=== PATIENT | male | born 1955 | race Caucasian/White ===

== ENCOUNTER 2022-11-01 07:13 | Day surgery (SDC) | payer BC ==
[~2022-11-01 07:13] MED LIST: Lactated Ringers 1,000 ML IV SCH
[2022-11-01] MEDS ORDERED: Metoclopramide 10 MG/2 ML SDV IVPUSH PRN (07:46)
[2022-11-01] MEDS ORDERED: fentaNYL 50 MCG/ML SDV IVPUSH PRN (07:46)
[2022-11-01] MEDS ORDERED: Morphine 2 MG/ML SYRINGE IVPUSH PRN (07:46)
[2022-11-01] MEDS ORDERED: Ondansetron 4 MG/2 ML SDV IVPUSH PRN (07:46)
[2022-11-01] MEDS ORDERED: HYDROmorphone 1 MG/ML Syringe IVPUSH PRN (07:46)
[2022-11-01] MEDS ORDERED: Albuterol 0.083% 2.5 MG/3 ML Neb Soln NEB PRN (07:46)
[2022-11-01] MEDS ORDERED: droPERidol 5 MG/2 ML SDV IVPUSH PRN (07:46)
[2022-11-01] MEDS ORDERED: Naloxone 0.4 MG/ML SDV IVPUSH PRN (07:46)
[2022-11-01] MEDS ORDERED: Dexmedetomidine 200 MCG/2 ML SDV ONE (07:49)
[2022-11-01] MEDS ORDERED: Water For Injection, Sterile 40 ML ONE (07:49)
[2022-11-01] MEDS ORDERED: Dexamethasone 4 MG/ML 5 ML MDV ONE (07:49)
[2022-11-01] MEDS ORDERED: fentaNYL 100 MCG/2 ML SDV ONE ×2 (07:49→08:51)
[2022-11-01] MEDS ORDERED: Propofol 200 MG/20 ML SDV ONE (07:49)
[2022-11-01] MEDS ORDERED: ceFAZolin 2 GM Vial ONE (07:49)
[2022-11-01] MEDS ORDERED: Lidocaine 2% 5 ML SDV ONE (07:49)
[2022-11-01] MEDS ORDERED: Lidocaine 1% 5 ML VIAL ONE (07:56)
[2022-11-01] MEDS ORDERED: Ropivacaine 0.5% 5 MG/ML 30 ML SDV ONE (07:59)
[2022-11-01] MEDS ORDERED: ceFAZolin 2 GM in Sodium Chloride 0.9% 50 ML IV ONE (08:00)
[2022-11-01] MEDS ORDERED: Bupivacaine 0.25% 30 ML SDV ONE (08:27)
[2022-11-01] MEDS ORDERED: Bupivacaine 25%/EPINEPHrine/PF 30 ML ONE (08:27)
[2022-11-01] MEDS ORDERED: Ketorolac 30 MG/ML SDV ONE (09:26)
== END 2022-11-01 11:17 | disposition home or self-care (01) ==
LOC: MW.SDS 07:13
PROVIDERS: ATTEND Orthopaedic Surgery
DX: M70.41 Prepatellar bursitis, right knee (principal); M51.16 Intervertebral disc disorders with radiculopathy, lumbar region; M48.061 Spinal stenosis, lumbar region without neurogenic claudication
CPT/HCPCS: 27340; 64447; 87070; 87075; 87205; J0690; J1100; J1885; J2704; J2795; J3010; J7120; J3490

== ENCOUNTER 2023-12-08 09:05 | Emergency (ER) | payer BC ==
[2023-12-08] MEDS: diphenhydrAMINE 50 MG/ML SDV IVPUSH ONE (09:19)
[2023-12-08] MEDS: EPINEPHrine 1 MG/1 ML Amp IM ONE (09:19)
[2023-12-08] MEDS: methylPREDNISolone Sodium Succinate 125 MG/2 ML SDV IVPUSH ONE (09:19)
[2023-12-08] MEDS: Famotidine 20 MG/2 ML SDV IVPUSH ONE (09:19)
[2023-12-08] MEDS: EPINEPHrine 1 MG/1 ML Amp ONE (09:28)
== END 2023-12-08 13:36 | disposition home or self-care (01) ==
LOC: MW.ED 09:05
DX: T63.441A Toxic effect of venom of bees, accidental (unintentional), initial encounter (principal); Z75.8 Other problems related to medical facilities and other health care
CPT/HCPCS: 96372; 96374; 96375; 99281; J0171; J1200; J2919; J3490